=== PATIENT | male | born 1985 | race Caucasian/White ===

== ENCOUNTER 2021-12-03 15:36 | Emergency (ER) | payer OTHER ==
[2021-12-03 15:45] VITALS: BP 131/75; PULSE 89; RESP 19; TEMP 97.8; BMI 27.1
== END 2021-12-03 19:45 | disposition home or self-care (01) ==
LOC: JER 15:36
DX: N50.811 Right testicular pain (principal); N50.812 Left testicular pain
CPT/HCPCS: 76870-TC; 99283-25

== ENCOUNTER 2022-05-01 01:53 | Emergency (ER) | payer OTHER ==
[2022-05-01 02:10] VITALS: BP 129/96; PULSE 97; RESP 18; TEMP 98; BMI 27.8
[2022-05-01] MEDS ORDERED: ACETAMINOPHEN 325 MG TABLET (FP) PO ONE (02:52)
[2022-05-01] MEDS ORDERED: KETOROLAC TROMETHAMINE 30 MG/1 ML VIAL IM ONE (02:52)
[2022-05-01] MEDS ORDERED: ACETAMINOPHEN 325 MG TABLET (FP) ONE (03:22)
[2022-05-01] MEDS ORDERED: KETOROLAC TROMETHAMINE 30 MG/1 ML VIAL ONE (03:22)
== END 2022-05-01 03:31 | disposition home or self-care (01) ==
LOC: JER 01:53
PROC: 3E0233Z Introduction of Anti-inflammatory into Muscle, Percutaneous Approach (ICD-10-PCS; principal; 2022-05-01)
DX: S39.012A Strain of muscle, fascia and tendon of lower back, initial encounter (principal); S23.3XXA Sprain of ligaments of thoracic spine, initial encounter; M54.2 Cervicalgia; V43.62XA Car passenger injured in collision with other type car in traffic accident, initial encounter
CPT/HCPCS: 99284-25